=== PATIENT | female | born 1980 | race Asian ===

== ENCOUNTER 2025-01-28 17:08 | Emergency (ER) | payer BC ==
[2025-01-28] MEDS ORDERED: Sodium Chloride 0.9% 10 ML Syringe FLUSH PRN (17:14)
[2025-01-28] MEDS ORDERED: Sodium Chloride 0.9% 2.5 ML Syringe FLUSH PRN (17:14)
[2025-01-28 18:02] LABS: BASOPHILS ABSOLUTE AUTO 0.04 K/uL (0.00-0.20); BASOPHILS PERCENT AUTO 0.3 % (0.0-1.0); EOSINOPHILS ABSOLUTE AUTO 0.33 K/uL (0.00-0.45); EOSINOPHILS PERCENT AUTO 2.6 % (0.0-6.0); IMMATURE GRAN ABSOLUTE AUTO 0.06 K/uL (0.00-0.05); IMMATURE GRAN PERCENT AUTO 0.5 % (0.0-0.4); LYMPHOCYTES ABSOLUTE AUTO 4.27 K/uL (1.00-4.80); LYMPHOCYTES PERCENT AUTO 34.1 % (24.0-44.0); MEAN PLATELET VOLUME 10.5 fL (9.4-12.3); MONOCYTES ABSOLUTE AUTO 0.85 K/uL (0.00-0.80); MONOCYTES PERCENT AUTO 6.8 % (0.0-8.0); NEUTROPHILS ABSOLUTE AUTO 6.98 K/uL (1.80-7.70); NEUTROPHILS PERCENT AUTO 55.7 % (41.0-71.0); NRBC ABSOLUTE 0.00 K/uL (0.00-0.02); NRBC PERCENT 0.0 /100WBC (0.0-0.2); PLATELET COUNT,PLT 250 K/uL (150-400); RED BLOOD CELL COUNT 5.11 M/uL (4.10-5.30); WHITE BLOOD CELL COUNT,WBC 12.53 K/uL (3.9-11.3)
[2025-01-28 18:14] LABS: INR 1.02 (0.86-1.11)
[2025-01-28] MEDS: Iopamidol 755 MG/ML 500 ML Multipack Bottle IVPUSH STA (18:27)
[2025-01-28] MEDS: Labetalol 100 MG/20 ML MDV IVPUSH ONE ×2 (18:30→18:57)
[2025-01-28] MEDS: LORazepam 2 MG/ML SDV IVPUSH ONE (18:30)
[2025-01-28 18:31] LABS: PRO B-TYPE NATRIUR PEPT,BNPPRO 45 pg/mL (0-125)
[2025-01-28 18:34] LABS: A/G RATIO 1.0 (0.9-1.6); ALANINE AMINOTRANSFERASE,ALT 57.0 IU/L (14-63); ASPARTATE AMNIOTRANSFERASE,AST 31.0 IU/L (15-37); BILIRUBIN TOTAL 0.4 mg/dL (0.2-1.0); BLOOD UREA NITROGEN,BUN 17.0 mg/dL (7.0-18.0); CARBON DIOXIDE,CO2 19.9 mmol/L (21.0-32.0); CHLORIDE,CL 100.0 mmol/L (98-107); CREATININE 0.8 mg/dL (0.6-1.0); EST CRCL DRUG DOSING (CG) 63.12 mL/min; GLUCOSE RANDOM 143.0 mg/dL (74-106); POTASSIUM,K 3.2 mmol/L (3.5-5.1); PROTEIN TOTAL,TP 7.9 g/dL (6.4-8.2); SODIUM,NA 137.0 mmol/L (136-145); TSH ULTRASENSITIVE 2.24 uIU/mL (0.36-3.74)
[2025-01-28 18:37] LABS: ESTIMATED GFR 92.0 mL/min (>60)
[2025-01-28] MEDS ORDERED: hydrALAZINE 20 MG/ML SDV IVPUSH ONE (18:50)
[2025-01-28] MEDS: Potassium Chloride 20 MEQ Tab.ER PO ONE (19:29)
[2025-01-28] MEDS: Lisinopril/Hydrochlorothiazide 10-12.5 MG Tab PO ONE (20:08)
[2025-01-28 22:24] LABS: APPEARANCE,URINE CLEAR; GLUCOSE,URINE NEGATIVE (NEGATIVE); OCCULT BLOOD,URINE MODERATE (NEGATIVE)
[2025-01-28 22:31] LABS: EPITHELIAL CELLS,URINE RARE (NONE-FEW)
== END 2025-01-29 00:10 | disposition home or self-care (01) ==
LOC: MW.ED 17:08
DX: I16.0 Hypertensive urgency (principal); F41.9 Anxiety disorder, unspecified; E87.6 Hypokalemia; Z93.0 Tracheostomy status; Z63.4 Disappearance and death of family member
CPT/HCPCS: 36415; 70450; 70496; 71045; 80053; 81001; 83735; 83880; 84443; 84484; 85025; 85610; 93005; 96374; 96375; 99285; A9270; J1920; J2060; Q9967; 93010; 99284